=== PATIENT | male | born 1985 | race Caucasian/White ===

== ENCOUNTER 2017-05-06 11:00 | Emergency (ER) | payer MEDICARE, OTHER ==
[~2017-05-06] VITALS: Ht 170.2 cm; Wt 72.6 kg
[~2017-05-06 11:00] MED LIST: AMOXICILLIN500 MG PO; IBUPROFEN600 MG PO; MECLIZINE HCL25 MG PO
--- NOTE | 2017-05-06 23:17 | EKG ---
[facility] [address] [facility] [place] [address] Signed Sinus tachycardia Right atrial enlargement Borderline ECG When compared with ECG of 31-MAY-2016 18:16, No significant change was found Confirmed by TARA DAWKINS MD ([id number]) on 05/06/2017 11:17:27 PM Electronically Signed By: TARA DAWKINS MD 05/06/17 2317 PATIENT NAME: LAURA EDGAR NATALIA Electrocardiogram DATE OF : 81 PHYSICIAN: TARA DAWKINS MD REPORT #: [id number] REPORT IS CONFIDENTIAL AND NOT TO BE RELEASED WITHOUT AUTHORIZATION
== END 2017-05-06 14:24 | disposition home or self-care (01) ==
LOC: ED 11:00
DX: F15.10 Other stimulant abuse, uncomplicated (principal); F17.200 Nicotine dependence, unspecified, uncomplicated; Z88.5 Allergy status to narcotic agent
CPT/HCPCS: 36415; 80048; 81001; 84484; 85025; 93005; 93010; 96361; 96374; 99283; J2060; J7030

== ENCOUNTER 2017-12-28 15:37 | Emergency (ER) | payer MEDICARE, OTHER ==
[~2017-12-28] VITALS: Ht 170.2 cm; Wt 73.5 kg
== END 2017-12-28 16:53 | disposition home or self-care (01) ==
LOC: ED 15:37
DX: Z00.8 Encounter for other general examination (principal)

== ENCOUNTER 2018-03-17 02:32 | Emergency (ER) | payer MEDICARE, OTHER ==
[~2018-03-17] VITALS: Ht 170.2 cm; Wt 77.1 kg
--- OUTSIDE RECORDS SUMMARY | 2018-03-17 02:36 | XMS ---
PreManage Notification: LAURA EDGAR Security Credit Administration Officer Events No recent Security Events currently on file CRITERIA MET - Group Notification CARE PROVIDERS There are no care providers on record at this time. Bhupendra has no Care Guidelines for this patient. Maura VISIT COUNT (12 MO.) 1 Reina Bailey TOTAL 5 NOTE: Visits indicate total known visits. ED/[facility] VISIT TRACKING (12 MO.) 03/17/2018 02:32 [facility] [place] TYPE: Emergency COMPLAINT: - LACERATION 12/28/2017 15:38 [facility] [place] TYPE: Emergency COMPLAINT: - POSS HEATSTROKE/MSE TO HOME DIAGNOSES: - Encounter for other general examination 11/01/2017 00:00 [facility] [place] TYPE: Emergency COMPLAINT: - ANIMAL BITE 09/17/2017 02:10 [facility] TYPE: Emergency COMPLAINT: - FEVER - FEVER UNSPECIFIED DIAGNOSES: 0. Fever, unspecified 1. Lobar pneumonia, unspecified organism 3. Dehydration 4. Post-traumatic stress disorder, unspecified 5. Allergy status to other drugs, medicaments and biological substances status 6. Nicotine dependence, unspecified, uncomplicated 05/06/2017 11:01 [facility] [place] TYPE: Emergency COMPLAINT: - CHEST PAIN WITH DRUG USE DIAGNOSES: - Other stimulant abuse, uncomplicated - Allergy status to narcotic agent status - Nicotine dependence, unspecified, uncomplicated INPATIENT VISIT TRACKING (12 MO.) No inpatient visits to display in this time frame [email or web address]
== END 2018-03-17 02:49 | disposition home or self-care (01) ==
LOC: ED 02:32
PROC: 0HQGXZZ Repair Left Hand Skin, External Approach (ICD-10-PCS; principal; 2018-03-17)
DX: S61.012A Laceration without foreign body of left thumb without damage to nail, initial encounter (principal); F17.200 Nicotine dependence, unspecified, uncomplicated; Z88.5 Allergy status to narcotic agent; W45.8XXA Other foreign body or object entering through skin, initial encounter
CPT/HCPCS: 12001; 99282

== ENCOUNTER 2018-09-16 02:35 | Emergency (ER) | payer MEDICARE, OTHER ==
[~2018-09-16] VITALS: Ht 170.2 cm; Wt 79.4 kg
--- OUTSIDE RECORDS SUMMARY | 2018-09-16 02:38 | XMS ---
PreManage Notification: LAURA EDGAR Security Supply Chain Manager Events No recent Security Events currently on file CRITERIA MET - Group Notification - [facility] - Has Care Guidelines CARE PROVIDERS There are no care providers on record at this time. Bhupendra has no Care Guidelines for this patient. Care History Medical/Surgical 03/17/2018 [facility] Care Recommendation: - Patient DOES NOT have a PCP. - Please refer patient to [facility] [address] [facility] [place] [address] This patient has had 5 or more Emergency Department visits in the last 12 months.\T\nbsp; Patient requires education on the scope and purpose of the ED as an acute care provider not a Primary Care Provider and should not be utilized for chronic conditions.\T\nbsp; If patient returns to ED please contact Community Health WorkerBell at [phone]. These are guidelines and the provider should exercise clinical judgment when providing care. E.D. VISIT COUNT (12 MO.) 1 Reina Balderrama 4 [facility] TOTAL 5 NOTE: Visits indicate total known visits. ED/UCC VISIT TRACKING (12 MO.) 09/16/2018 02:35 [facility] [place] TYPE: Emergency COMPLAINT: - NECK PAIN 03/17/2018 02:32 [facility] [place] TYPE: Emergency COMPLAINT: - LACERATION DIAGNOSES: - Nicotine dependence, unspecified, uncomplicated - Other foreign body or object entering through skin, initial encounter - Unspecified injury of left wrist, hand and finger(s), initial encounter - Laceration without foreign body of left thumb without damage to nail, initial encounter - Allergy status to narcotic agent status 12/28/2017 15:38 [facility] [place] TYPE: Emergency COMPLAINT: - POSS HEATSTROKE/MSE TO HOME DIAGNOSES: - Encounter for other general examination 11/01/2017 00:00 APRIL Reid TYPE: Emergency COMPLAINT: - ANIMAL BITE 09/17/2017 02:10 Reina [facility] TYPE: Emergency COMPLAINT: - FEVER - FEVER UNSPECIFIED DIAGNOSES: 0. Fever, unspecified 1. Lobar pneumonia, unspecified organism 3. Dehydration 4. Post-traumatic stress disorder, unspecified 5. Allergy status to other drugs, medicaments and biological substances status 6. Nicotine dependence, unspecified, uncomplicated INPATIENT VISIT TRACKING (12 MO.) No inpatient visits to display in this time frame [id number]
[2018-09-16] MEDS ORDERED: CYCLOBENZAPRINE10 MG PO (05:02)
== END 2018-09-16 05:14 | disposition home or self-care (01) ==
LOC: ED 02:35
DX: M54.2 Cervicalgia (principal)
CPT/HCPCS: 96372; 99283-25; J1885

== ENCOUNTER 2018-09-27 20:59 | Emergency (ER) | payer MEDICARE, OTHER ==
[~2018-09-27] VITALS: Ht 170.2 cm; Wt 78.0 kg
[~2018-09-27 20:59] MED LIST changes: +CYCLOBENZAPRINE10 MG PO
--- OUTSIDE RECORDS SUMMARY | 2018-09-27 21:02 | XMS ---
PreManage Notification: LAURA EDGAR Security Preventative Maintenance Technician Events No recent Security Events currently on file CRITERIA MET - Group Notification - [facility] - Has Care Guidelines - [facility] - 2 Visits in 30 Days CARE PROVIDERS There are no care providers on record at this time. Bhupendra has no Care Guidelines for this patient. Care History Medical/Surgical 09/18/2018 [facility] - CHW SPOKE WITH PATIENT- PATIENT STATED HE DOES NOT HAVE A PCP AND DOES NOT WANT ONE. - PATIENT [facility] - WALK IN. - PATIENT STATED HE DOES NOT BELIEVE IN MEDICATIONS AND DOES NOT WANT ANY ASSISTANCE WITH ESTABLISHING CARE WITH A PCP. - CHW EDUCATED PATIENT ON ED UTILIZATION. 03/17/2018 [facility] Care Recommendation: - Patient DOES NOT have a PCP. - Please refer patient to [facility] [address] [place] [address] This patient has had 5 or more Emergency Department visits in the last 12 months.\T\nbsp; Patient requires education on the scope and purpose of the ED as an acute care provider not a Primary Care Provider and should not be utilized for chronic conditions.\T\nbsp; If patient returns to ED please contact Community Health WorkerBell at [phone]. These are guidelines and the provider should exercise clinical judgment when providing care. E.D. VISIT COUNT (12 MO.) 5 [facility] TOTAL 5 NOTE: Visits indicate total known visits. ED/UCC VISIT TRACKING (12 MO.) 09/27/2018 21:00 [facility] [place] TYPE: Emergency COMPLAINT: - CHEST PAIN 09/16/2018 02:35 [facility] [place] TYPE: Emergency COMPLAINT: - NECK PAIN/NO INJURY DIAGNOSES: - Cervicalgia 03/17/2018 02:32 [facility] [place] TYPE: Emergency [...] OR TYPE: Emergency COMPLAINT: - ANIMAL BITE INPATIENT VISIT TRACKING (12 MO.) No inpatient visits to display in this time frame [id number]
--- NOTE | 2018-09-28 07:56 | EKG ---
[facility] [address] [facility] [place] [address] Signed Normal sinus rhythm Incomplete right bundle branch block Borderline ECG When compared with ECG of 06-MAY-2017 11:07, Incomplete right bundle branch block is now present Confirmed by DENIS ALEXANDER MD ([id number]) on 09/28/2018 7:56:49 AM Electronically Signed By: DENIS ALEXANDER MD 09/28/18 0756 PATIENT NAME: EDGARLAURA Electrocardiogram DATE OF : 81 PHYSICIAN: DENIS ALEXANDER MD REPORT #: [id number] REPORT IS CONFIDENTIAL AND NOT TO BE RELEASED WITHOUT AUTHORIZATION
== END 2018-09-27 23:35 | disposition home or self-care (01) ==
LOC: ED 20:59
DX: R07.89 Other chest pain (principal); F15.10 Other stimulant abuse, uncomplicated; F17.200 Nicotine dependence, unspecified, uncomplicated; Z88.5 Allergy status to narcotic agent
CPT/HCPCS: 71045; 80053; 81001; 84484; 85025; 93005; 93010; 96361; 96374; 99285-25; G0480; J1885; J7030

== ENCOUNTER 2019-02-19 00:38 | Emergency (ER) | payer MEDICARE, OTHER ==
[~2019-02-19] VITALS: Ht 170.2 cm; Wt 78.0 kg
--- OUTSIDE RECORDS SUMMARY | 2019-02-19 00:40 | XMS ---
PreManage Notification: LAURA EDGAR Security Public Area Supervisor Events No recent Security Events currently on file CRITERIA MET - Group Notification - [facility] - Has Care Guidelines CARE PROVIDERS There are no care providers on record at this time. Bhupendra has no Care Guidelines for this patient. Care History Medical/Surgical 09/18/2018 [facility] - CHW SPOKE WITH PATIENT- PATIENT STATED HE DOES NOT HAVE A PCP AND DOES NOT WANT ONE. - PATIENT [facility]ES [facility] - WALK IN. - PATIENT STATED HE DOES NOT BELIEVE IN MEDICATIONS AND DOES NOT WANT ANY ASSISTANCE WITH ESTABLISHING CARE WITH A PCP. - CHW EDUCATED PATIENT ON ED UTILIZATION. 03/17/2018 [facility] Care Recommendation: - Patient DOES NOT have a PCP. - Please refer patient to [facility] [address] [facility] [address] This patient has had 5 or more Emergency Department visits in the last 12 months.\T\nbsp; Patient requires education on the scope and purpose of the ED as an acute care provider not a Primary Care Provider and should not be utilized for chronic conditions.\T\nbsp; If patient returns to ED please contact Community Health WorkerBell at [phone]. These are guidelines and the provider should exercise clinical judgment when providing care. E.D. VISIT COUNT (12 MO.) 4 [facility] TOTAL 4 NOTE: Visits indicate total known visits. ED/UCC VISIT TRACKING (12 MO.) 02/19/2019 00:38 [facility] [place] TYPE: Emergency COMPLAINT: - CHEST PAIN 09/27/2018 21:00 [facility] [place] TYPE: Emergency COMPLAINT: - CHEST PAIN DIAGNOSES: - Allergy status to narcotic agent status - Other chest pain - Other stimulant abuse, uncomplicated - Nicotine dependence, unspecified, uncomplicated 09/16/2018 02:35 [facility] [place] TYPE: Emergency COMPLAINT: - NECK PAIN/NO INJURY DIAGNOSES: - Cervicalgia 03/17/2018 02:[address] [facility] [place] TYPE: Emergency COMPLAINT: - LACERATION DIAGNOSES: - Nicotine dependence, unspecified, uncomplicated - Other foreign body or object entering through skin, initial encounter - Unspecified injury of left wrist, hand and finger(s), initial encounter - Laceration without foreign body of left thumb without damage to nail, initial encounter - Allergy status to narcotic agent status INPATIENT VISIT TRACKING (12 MO.) No inpatient visits to display in this time frame [id number]
[2019-02-19] MEDS ORDERED: OMEPRAZOLE20 MG PO (02:16)
--- NOTE | 2019-02-19 16:05 | EKG ---
[facility] [address] [facility] [place] [address] Signed Normal sinus rhythm Incomplete right bundle branch block Borderline ECG When compared with ECG of 27-SEP-2018 21:03, No significant change was found Confirmed by TARA DAWKINS MD ([id number]) on 02/19/2019 4:05:24 PM Electronically Signed By: TARA DAWKINS MD 02/19/19 1605 PATIENT NAME: EDGARLAURA Electrocardiogram DATE OF : 81 PHYSICIAN: TARA DAWKINS MD REPORT #: [id number] REPORT IS CONFIDENTIAL AND NOT TO BE RELEASED WITHOUT AUTHORIZATION
== END 2019-02-19 02:55 | disposition home or self-care (01) ==
LOC: ED 00:38
DX: K30 Functional dyspepsia (principal); F17.200 Nicotine dependence, unspecified, uncomplicated; Z88.5 Allergy status to narcotic agent
CPT/HCPCS: 71045; 80053; 83735; 84484; 85025; 93005; 93010; 96374; 99285-25; C9113

== ENCOUNTER 2019-05-18 12:08 | Emergency (ER) | payer MEDICARE, OTHER ==
[~2019-05-18] VITALS: Ht 170.2 cm; Wt 78.0 kg
[~2019-05-18 12:08] MED LIST changes: +OMEPRAZOLE20 MG PO
--- OUTSIDE RECORDS SUMMARY | 2019-05-18 12:12 | XMS ---
PreManage Notification: LAURA EDGAR Security Cardiology Clinical Nurse Specialist Events No recent Security Events currently on file CRITERIA MET - Group Notification - [facility] - Has Care Guidelines CARE PROVIDERS There are no care providers on record at this time. Bhupendra has no Care Guidelines for this patient. Care History Medical/Surgical 09/18/2018 [facility] - CHW SPOKE WITH PATIENT- PATIENT STATED HE DOES NOT HAVE A PCP AND DOES NOT WANT ONE. - PATIENT [facility]ES [facility] - WALK IN. - PATIENT STATED HE DOES NOT BELIEVE IN MEDICATIONS AND DOES NOT WANT ANY ASSISTANCE WITH ESTABLISHING CARE WITH A PCP. - CHW EDUCATED PATIENT ON ED UTILIZATION. 03/17/2018 [facility] Care Recommendation: - Patient DOES NOT have a PCP. - Please refer patient to [facility] [address] [place] [address] This patient has had 5 or more Emergency Department visits in the last 12 months.\T\nbsp; Patient requires education on the scope and purpose of the ED as an acute care provider not a Primary Care Provider and should not be utilized for chronic conditions.\T\nbsp; If patient returns to ED please contact Community Health WorkerBell at [phone]. These are guidelines and the provider should exercise clinical judgment when providing care. E.D. VISIT COUNT (12 MO.) 4 [facility] TOTAL 4 NOTE: Visits indicate total known visits. ED/UCC VISIT TRACKING (12 MO.) 05/18/2019 12:10 [facility] [place] TYPE: Emergency COMPLAINT: - PAIN IN LEFT SHOULDER, CHEST 02/19/2019 00:38 [facility] [place] TYPE: Emergency COMPLAINT: - CHEST PAIN DIAGNOSES: - Functional dyspepsia - Nicotine dependence, unspecified, uncomplicated - Allergy status to narcotic agent status - Chest pain, unspecified 09/27/2018 21:00 [facility] [place] TYPE: Emergency COMPLAINT: - CHEST PAIN DIAGNOSES: - Allergy status to narcotic agent status - Other chest pain - Other stimulant abuse, uncomplicated - Nicotine dependence, unspecified, uncomplicated 09/16/2018 02:[address] [facility] [place] TYPE: Emergency COMPLAINT: - NECK PAIN/NO INJURY DIAGNOSES: - Cervicalgia INPATIENT VISIT TRACKING (12 MO.) No inpatient visits to display in this time frame [id number]
--- NOTE | 2019-05-19 22:53 | EKG ---
[facility] [address] [facility] [place] [address] Signed Normal sinus rhythm Normal ECG When compared with ECG of 19-FEB-2019 00:44, Incomplete right bundle branch block is no longer present Confirmed by TARA DAWKISN MD ([id number]) on 05/19/2019 10:53:07 PM Electronically Signed By: TARA DAWKINS MD 05/19/19 2253 PATIENT NAME: EDGARLAURA Electrocardiogram DATE OF : 81 PHYSICIAN: TARA DAWKINS MD REPORT #: [id number] REPORT IS CONFIDENTIAL AND NOT TO BE RELEASED WITHOUT AUTHORIZATION
== END 2019-05-18 15:10 | disposition home or self-care (01) ==
LOC: ED 12:08
DX: J20.9 Acute bronchitis, unspecified (principal); R07.89 Other chest pain; F43.10 Post-traumatic stress disorder, unspecified; F17.200 Nicotine dependence, unspecified, uncomplicated; Z88.5 Allergy status to narcotic agent; Z79.899 Other long term (current) drug therapy
CPT/HCPCS: 71045; 93005; 93010; 99285-25

== ENCOUNTER 2021-01-21 10:52 | Emergency (ER) | payer MEDICARE, OTHER ==
[~2021-01-21] VITALS: Ht 170.2 cm; Wt 78.0 kg
--- OUTSIDE RECORDS SUMMARY | 2021-01-21 11:02 | XMS ---
PreManage Notification: LAURA EDGAR Security Hydrology Technician Events No recent Security Events currently on file CRITERIA MET - Group Notification CARE PROVIDERS RHIANNON Stevenson, Registered 05/21/2019-[facility] PHONE: [phone] Bhupendra has no Care Guidelines for this patient. Care History Medical/Surgical 09/18/2018 [facility] - CHW SPOKE WITH PATIENT- PATIENT STATED HE DOES NOT HAVE A PCP AND DOES NOT WANT ONE. - PATIENT DOES [facility] NEED[facility] - WALK IN. - PATIENT STATED HE DOES NOT BELIEVE IN MEDICATIONS AND DOES NOT WANT ANY ASSISTANCE WITH ESTABLISHING CARE WITH A PCP. - CHW EDUCATED PATIENT ON ED UTILIZATION. 03/17/2018 [facility] Care Recommendation: - Patient DOES NOT have a PCP. - Please refer patient to [facility] [address] [facility] [place] [address] This patient has had 5 or more Emergency Department visits in the last 12 months.\T\nbsp; Patient requires education on the scope and purpose of the ED as an acute care provider not a Primary Care Provider and should not be utilized for chronic conditions.\T\nbsp; If patient returns to ED please contact Community Health WorkerBell at [phone]. These are guidelines and the provider should exercise clinical judgment when providing care. E.D. VISIT COUNT (12 MO.) 1 Alfredo Balderrama 1 APRIL Bailey TOTAL 2 NOTE: Visits indicate total known visits. ED/UCC VISIT TRACKING (12 MO.) 01/21/2021 10:54 [facility] [place] TYPE: Emergency COMPLAINT: - N/V, DIARRHEA, DEHYDRATED 11/03/2020 17:32 Alfredo [facility] TYPE: Emergency DIAGNOSES: - Blister - Foot Blister INPATIENT VISIT TRACKING (12 MO.) No inpatient visits to display in this time frame [id number]
[2021-01-21] MEDS ORDERED: FISH OIL 1,0001 EAC2 NG (11:12)
[2021-01-21] MEDS ORDERED: VITAMIN D250 MCG PO (11:12)
[2021-01-21] MEDS ORDERED: BIOTIN1 MG PO (11:12)
[2021-01-21] MEDS ORDERED: IRON325 M1 PO (11:12)
[2021-01-21] MEDS ORDERED: MULTIPLE VITAM1 EAC2 PO (11:12)
[2021-01-21] MEDS ORDERED: ONDANSETRON ODT4 MG PO (13:59)
[2021-01-21] MEDS ORDERED: DICYCLOMINE HCL10 MG PO (13:59)
== END 2021-01-21 14:25 | disposition home or self-care (01) ==
LOC: ED 10:52
DX: R19.7 Diarrhea, unspecified (principal); E86.0 Dehydration; R11.2 Nausea with vomiting, unspecified; F43.10 Post-traumatic stress disorder, unspecified; F17.200 Nicotine dependence, unspecified, uncomplicated; Z88.5 Allergy status to narcotic agent; Z79.899 Other long term (current) drug therapy; Z20.822 Contact with and (suspected) exposure to COVID-19
CPT/HCPCS: 80053; 81001; 83690; 83735; 85025; 96374; 96375; 99284-25; J1885; J2405; J7030; U0003

== ENCOUNTER 2021-01-25 08:00 | Emergency (ER) | payer MEDICARE, OTHER ==
[~2021-01-25] VITALS: Ht 170.2 cm; Wt 77.8 kg
[~2021-01-25 08:00] MED LIST changes: +BIOTIN1 MG PO; +DICYCLOMINE HCL10 MG PO; +FISH OIL 1,0001 EAC2 NG; +IRON325 M1 PO; +MULTIPLE VITAM1 EAC2 PO; +ONDANSETRON ODT4 MG PO; +VITAMIN D250 MCG PO
--- OUTSIDE RECORDS SUMMARY | 2021-01-25 08:06 | XMS ---
PreManage Notification: LAURA EDGAR Security Solar Installer Technician Events No recent Security Events currently on file CRITERIA MET - Group Notification - [facility] - 2 Visits in 30 Days CARE PROVIDERS RHIANNON PERLA Dietitian, Registered 05/21/2019-[facility] PHONE: [phone] Bhupendra has no Care Guidelines for this patient. Care History Medical/Surgical 09/18/2018 [facility] - CHW SPOKE WITH PATIENT- PATIENT STATED HE DOES NOT HAVE A PCP AND DOES NOT WANT ONE. - PATIENT [facility]ES [facility] NEED[facility] - WALK IN. - PATIENT STATED HE DOES NOT BELIEVE IN MEDICATIONS AND DOES NOT WANT ANY ASSISTANCE WITH ESTABLISHING CARE WITH A PCP. - CHW EDUCATED PATIENT ON ED UTILIZATION. 03/17/2018 [facility] Care Recommendation: - Patient DOES NOT have a PCP. - Please refer patient to [facility] [address] [place] [address] This patient has had 5 or more Emergency Department visits in the last 12 months.\T\nbsp; Patient requires education on the scope and purpose of the ED as an acute care provider not a Primary Care Provider and should not be utilized for chronic conditions.\T\nbsp; If patient returns to ED please contact Community Health WorkerBell at [phone]. These are guidelines and the provider should exercise clinical judgment when providing care. E.D. VISIT COUNT (12 MO.) 1 Alfredo Balderrama 2 APRIL Bailey TOTAL 3 NOTE: Visits indicate total known visits. ED/UCC VISIT TRACKING (12 MO.) 01/25/2021 08:01 [facility] [place] TYPE: Emergency COMPLAINT: - RT HAND INFECTION 01/21/2021 10:54 APRIL Reid TYPE: Emergency COMPLAINT: - N/V, DIARRHEA, DEHYDRATED 11/03/2020 17:32 Alfredo BARRERA TYPE: Emergency DIAGNOSES: - Blister - Foot Blister INPATIENT VISIT TRACKING (12 MO.) No inpatient visits to display in this time frame [id number]
== END 2021-01-25 08:54 | disposition home or self-care (01) ==
LOC: ED 08:00
DX: M79.89 Other specified soft tissue disorders (principal); F17.200 Nicotine dependence, unspecified, uncomplicated; Z88.5 Allergy status to narcotic agent
CPT/HCPCS: 73130; 99283-25